=== PATIENT | female | born 1945 | race Caucasian/White ===

== ENCOUNTER 2017-09-26 12:00 | Emergency (ER) | payer MEDICARE, OTHER ==
[~2017-09-26] VITALS: Ht 165.1 cm; Wt 54.4 kg
[2017-09-26 12:15] VITALS: BP 145/77
--- NOTE | 2017-09-26 12:50 | Emergency Room Report ---
History of Present Illness General Chief Complaint: Multiple Trauma/Fall Source: Patient Present Illness HPI 72-year-old female presents to the emergency department status post mechanical trip and fall where she hit her head on the sidewalk outside. Patient also reports tenderness and pain that is 5 out of 10 in severity to the right anterior knee. Patient denies headache, nausea, vomiting, dizziness or loss of consciousness. She denies taking blood thinning medications or OTC's such as aspirin, ibuprofen, Advil, Motrin. She reports that she is on dialysis she was on her way to an appointment when she fell. Patient receives dialysis 3 times a week. MWF. She denies chest pain, palpitations, neck pain or back pain. Denies pain with eye movements reports bruising, abrasion to the right side of the forehead as well as abrasion on the right knee. This patient is unfamiliar with what a tetanus vaccination is. Denies numbness tingling or loss of sensation or gross motor movements of the extremities, incontinence of bowel or bladder. Denies CP, Palpitations, LOC, AMS, dizziness, Changes in Vision, weakness or a sudden severe headache. Allergies: Coded Allergies: No Known Allergies (Unverified , 09/26/17) Patient History Past Medical History: see triage record, dialysis Past Surgical History: none Pertinent Family History: none Now: No Reviewed Nursing Documentation: PMH: Agreed; PSxH: Agreed Nursing Documentation-PMH Past Medical History: No History, Except For Hx Cardiac Problems: No Hx Hypertension: Yes Hx Pacemaker: No Hx Asthma: No Hx COPD: No Hx Diabetes: No Hx Cancer: No Hx Gastrointestinal Problems: No Hx Dialysis: Yes - M-W-F (R arm AV shunt) History Of Psychiatric Problem: No Hx Neurological Problems: No Hx Cerebrovascular Accident: No Hx Seizures: No Review of Systems All Other Systems: negative except mentioned in HPI Physical Exam Vital Signs Date Time Temp Pulse Resp B/P (MAP) Pulse Ox O2 Delivery O2 Flow Rate FiO2 09/26/17 12:09 76 16 145/77 94 Room Air Sp02 EP Interpretation: reviewed, normal General Appearance: no apparent distress, alert, GCS 15, non-toxic Head: normocephalic, other - Right temporal /forehead hematoma, small superficial abrasion. Eyes: bilateral eye normal inspection, bilateral eye PERRL, bilateral eye EOMI ENT: hearing grossly normal, normal voice Neck: full range of motion Respiratory: lungs clear, normal breath sounds, speaking full sentences Cardiovascular #1: regular rate, rhythm Musculoskeletal: back normal, gait/station normal, normal range of motion, tender - anterior right knee, swelling, abrasion noted. no increased laxity. Neurologic: alert, oriented x3, responsive, motor strength/tone normal, sensory intact, normal gait, speech normal, grossly normal Psychiatric: judgement/insight normal Skin: normal color, no rash, warm/dry, well hydrated, abrasions - right side of the forehead-superficial, and right anterior knee. Medical Decision Making PA Attestation Dr. Baum is my supervising Physician whom patient management has been discussed with. Diagnostic Impression: Primary Impression: Traumatic hematoma of face Qualified Codes: S00.83XA - Contusion of other part of head, initial encounter Additional Impressions: Abrasions of multiple sites Contusion of knee, right Qualified Codes: S80.01XA - Contusion of right knee, initial encounter ER Course 72-year-old female presents to the emergency department status post mechanical trip and fall where she hit her head on the sidewalk outside. Patient also reports tenderness and pain that is 5 out of 10 in severity to the right anterior knee. Patient denies headache, nausea, vomiting, dizziness or loss of consciousness. She denies taking blood thinning medications or OTC's such as aspirin, ibuprofen, Advil, Motrin. She reports that she is on dialysis she was on her way to an appointment when she fell. Patient receives dialysis 3 times a week. MWF. She denies chest pain, palpitations, neck pain or back pain. Denies pain with eye movements reports bruising, abrasion to the right side of the forehead as well as abrasion on the right knee. This patient is unfamiliar with what a tetanus vaccination is. Denies numbness tingling or loss of sensation or gross motor movements of the extremities, incontinence of bowel or bladder. Denies CP, Palpitations, LOC, AMS, dizziness, Changes in Vision, weakness or a sudden severe headache. Ddx considered but are not limited to Fracture, dislocation, contusion, concussion Sprain/Strain/Spasm, hematoma, facial bone fx, intracranial bleed, subdural hematoma just to name a few. Vital signs: are WNL, pt. is afebrile H&PE are most consistent with facial hematoma, no evidence of focal neurological deficit, no loss of consciousness. ORDERS: -CT facial bones and CT head noncontrast- She is in advanced age, has significant hematoma to the right temporal area as well as history of dialysis I feel that this patient is at risk for possible complications despite no cc of Head pain, or neurological symptoms. -X-ray: right knee. ED INTERVENTIONS: - Pt. provided with ICE pack -Pt. Declines pain meds. - Tdap administered. - Pt. and responsible libertarian verbalize their understanding and agreement with proposed treatment plan. DISCHARGE: At this time pt. is stable for d/c to home. Will provide printed patient care instructions, and any necessary prescriptions. Care plan and follow up instructions have been discussed with the patient prior to discharge. Other X-Ray Diagnostic Results Other X-Ray Diagnostic Results : X-Ray ordered: Right knee # of Views/Limited Vs Complete: 3 View Indication: Pain EP Interpretation: Yes PA Xray: Interpretation reviewed, by supervising MD, and agrees with findings. Interpretation: no dislocation, no soft tissue swelling, no fractures Impression: No acute disease Electronically Signed by: Mary English PA-C CT/MRI/US Diagnostic Results CT/MRI/US Diagnostic Results #1: Imaging Test Ordered: CT Head No-Contrast Impression "No evidence of acute fracture, hemorrhage, or intracranial process." Per official radiology report- Please see report for specific details. CT/MRI/US Diagnostic Results #2: Imaging Test Ordered: CT Facial Bones No contrast Impression " No acute bony trauma, Evidence of right periorbital soft tissue trauma. "- Per official radiology report- Please see report for specific details. Last Vital Signs Date Time Temp Pulse Resp B/P (MAP) Pulse Ox O2 Delivery O2 Flow Rate FiO2 09/26/17 12:09 76 16 145/77 94 Room Air Disposition: HOME, SELF-CARE Condition: Stable Scripts Bacitracin/Polymyxin B Sulfate (BACITRACIN-POLYMYXIN OINTMENT) 28.35 Gm Oint...g. 1 APPLIC TP BID, #28.3 GM Prov: Mary English 09/26/17 Acetaminophen* (TYLENOL EXTRA STRENGTH*) 500 Mg Tablet 500 MG ORAL Q6H, #20 TAB 0 Refills Prov: Mary English 09/26/17 Patient Instructions: Contusion, [id number], Facial or Scalp Contusion, Easy- to-Read Additional Instructions: Take medications as directed. Return to have Dialysis done today- Per your PCP Dr. Estrada Follow up with a Primary Care Provider in 3-5 days, even if your symptoms have resolved. Return sooner to ED if new symptoms occur, or current symptoms become worse. - Please note that this Emergency Department Report was dictated using [employer] flume layer technology software, occasionally this can lead to erroneous entry secondary to interpretation by the dictation equipment. Mary English Sep 26, 2017 12:50
[2017-09-26] MEDS ORDERED: Bacitracin Oint UD TOPIC ONE (13:00)
[2017-09-26] MEDS ORDERED: Tetanus/Diptheria/Pertussis Vaccine 0.5ml Syr IM ONE (13:00)
--- NOTE | 2017-09-26 13:40 | Diagnostic Imaging Report ---
Indications: Facial pain, status post trip and fall with head trauma Technique: Spiral images obtained through the facial bones. No IV contrast utilized. Multiplanar reconstructions were generated.Total dose length product 587.3 mGycm. CTDIvol(s) 28.19 mGy. Dose reduction achieved using automated exposure control Comparison: none Findings: There is right periorbital soft tissue swelling. No acute fractures. No worrisome sinus opacification. The visualized intracranial structures are unremarkable. There is evidence of prior bilateral cataract surgery. The optic globes are intact. The retroseptal orbits are unremarkable. The facial soft tissues are unremarkable. There is a small calculus within the left parotid gland. No evidence of ductal dilatation. The upper aerodigestive tract appears unremarkable. There are degenerative changes of the cervical spine incidentally noted. Impression: No acute bony trauma Evidence of right periorbital soft tissue trauma Incidental findings of small left parotid sialolith, degenerative cervical spondylosis The CT scanner at [facility] is accredited by the [employer] and the scans are performed using protocols designed to limit radiation exposure to as low as reasonably achievable to attain images of sufficient resolution adequate for diagnostic evaluation.
--- NOTE | 2017-09-26 13:51 | Diagnostic Imaging Report ---
Indications: Head trauma, tenderness, pain, dizziness Technique: Spiral acquisitions obtained through the brain. Angled axial and coronal 5 x 5 mm slices were reconstructed. Total dose length product 1372.57 mGycm. CTDI vol(s) 70.38 mGy. Dose reduction achieved using automated exposure control Comparison: None. Findings: There is a left parietal cortical dystrophic appearing calcification. There is age-related enlargement of the ventricles and extra axial CSF spaces. There is some periventricular deep white matter chronic ischemic change. No acute intercranial hemorrhage nor edema, mass effect, nor midline shift. Normal pradhan-white differentiation. The visualized orbits and sinuses are unremarkable. Intact calvarium. There is mild right periorbital soft tissue contusion Impression: Negative for acute intracranial bleed or mass effect Age-related volume loss and chronic periventricular deep white matter ischemic changes The CT scanner at [facility] is accredited by the [employer] and the scans are performed using protocols designed to limit radiation exposure to as low as reasonably achievable to attain images of sufficient resolution adequate for diagnostic evaluation.
[2017-09-26] MEDS ORDERED: TYLENOL EXTRA500 MG ORAL (14:00)
[2017-09-26] MEDS ORDERED: BACITRACIN-P28.35 GM TP (14:00)
[2017-09-26 14:16] VITALS: BP 145/77
--- NOTE | 2017-09-26 14:47 | Diagnostic Imaging Report ---
Indication: Right knee pain Technique: 4 views of the right knee Comparison: None Findings: There is a soft tissue defect in the prepatellar soft tissues. No acute fractures. No dislocations. There is minimal narrowing of the medial joint compartment. Impression: Evidence of prepatellar soft tissue injury. No acute bony trauma
== END 2017-09-26 14:17 | disposition home or self-care (01) ==
LOC: EMR 12:44
DX: S00.83XA Contusion of other part of head, initial encounter (principal); S00.81XA Abrasion of other part of head, initial encounter; S80.211A Abrasion, right knee, initial encounter; S80.01XA Contusion of right knee, initial encounter; I10 Essential (primary) hypertension; Z99.2 Dependence on renal dialysis; Z23 Encounter for immunization; W01.0XXA Fall on same level from slipping, tripping and stumbling without subsequent striking against object, initial encounter; Y92.480 Sidewalk as the place of occurrence of the external cause; Y99.8 Other external cause status
CPT/HCPCS: 70450; 70486; 90471; 90715; 99284